=== PATIENT | female | born 1970 ===

== ENCOUNTER → 2019-05-24 | Outpatient (REF) | payer OTHER | LOC: M LAB LCGH 11:41 | PROVIDERS: ATTEND Obstetrics & Gynecology | DX: Z12.4 Encounter for screening for malignant neoplasm of cervix (principal) | CPT/HCPCS: 87624; G0123 ==

== ENCOUNTER → 2019-05-24 | Outpatient (REF) | LOC: M LAB LCGH 13:40 | PROVIDERS: ATTEND Obstetrics & Gynecology | DX: N84.0 Polyp of corpus uteri (principal) ==